=== PATIENT | female | born 1970 | race Caucasian/White ===

== ENCOUNTER → 2022-07-23 | Outpatient (CLI) | payer SELFPAY | END | disposition home or self-care (01) | LOC: LABMAIN 00:12 | PROVIDERS: ATTEND Emergency Medicine | DX: Z53.9 Procedure and treatment not carried out, unspecified reason (principal) ==

== ENCOUNTER 2023-12-25 17:25 | Emergency (ER) | payer OTHER, MEDICARE ==
[2023-12-25 18:07] VITALS: TEMP 97.4
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
[2023-12-25 19:21] VITALS: BP 120/84; PULSE 79; RESP 16
== END 2023-12-25 18:47 | disposition home or self-care (01) ==
LOC: EC 17:25
DX: S00.83XA Contusion of other part of head, initial encounter (principal); F17.200 Nicotine dependence, unspecified, uncomplicated; V89.2XXA Person injured in unspecified motor-vehicle accident, traffic, initial encounter; Y92.411 Interstate highway as the place of occurrence of the external cause
CPT/HCPCS: 70486; 99284